=== PATIENT | male | born 1980 ===

== ENCOUNTER 2022-02-19 09:46 | Emergency (ER) | payer OTHER ==
[2022-02-19 10:05] VITALS: BP 117/84; PULSE 78; TEMP 97.5; BMI 21.6
[2022-02-19] MEDS ORDERED: KETOROLAC TROMETHAMINE 30 MG/1 ML VIAL IM ONE (12:34)
[2022-02-19] MEDS ORDERED: KETOROLAC TROMETHAMINE 30 MG/1 ML VIAL ONE (12:54)
== END 2022-02-19 13:33 | disposition home or self-care (01) ==
LOC: JERFT 09:46
DX: M25.562 Pain in left knee (principal); G89.29 Other chronic pain
CPT/HCPCS: 73564-TC-LT-FY; 93971-TC; 99281-25